=== PATIENT | male | born 1965 | race Caucasian/White ===

== ENCOUNTER 2016-05-09 12:01 | Inpatient (IN) | payer OTHER ==
[2016-05-09 12:16] VITALS: BMI 18.8
--- NOTE | 2016-05-09 16:18 | HP ---
Admission [facility] Chief Complaint: emil vásquez here for rehab from alcohol Allergies/Adverse Reactions: Allergies Allergy/AdvReac Type Severity Reaction Status Date / Time pollen extracts Allergy Intermediate Verified 05/09/16 16:05 avocado Allergy Verified 05/09/16 16:18 banana Allergy Verified 05/09/16 16:18 History of Present Illness: this 50 years old male with alcohol dependence for rehab,last detox weeks ago [facility] alcohol related hypertension hepatitis c depression mmtp 30 mgs/day,last medicated today Exam Limitations: No Limitations - Ebola screening Have you traveled outside of the country in the last 21 days: No Have you been sick,other than usual withdrawal symptoms: No - Review of Systems Constitutional: Malaise, Unintentional Wgt. Loss EENT: reports: No Symptoms Reported Respiratory: reports: No Symptoms reported Cardiac: reports: No Symptoms Reported GI: reports: No Symptoms Reported : reports: No Symptoms Reported Musculoskeletal: reports: No Symptoms Reported Integumentary: reports: No Symptoms Reported Neuro: reports: No Symptoms reported Endocrine: reports: No Symptoms Reported Hematology: reports: No Symptoms Reported Psychiatric: reports: Depressed Patient History - Patient Medical History Hx Anemia: No Hx Asthma: Yes (on albutrol inhaler) Hx Chronic Obstructive Pulmonary Disease (COPD): No Hx Cancer: No Hx Cardiac Disorders: No Hx Congestive Heart Failure: No Hx Hypertension: Yes (non complianace) Hx Hypercholesterolemia: No Hx Pacemaker: No HX Cerebrovascular Accident: No Hx Seizures: No Hx Dementia: No Hx Diabetes: No Hx Gastrointestinal Disorders: No Hx Liver Disease: No Hx Genitourinary Disorders: No Hx Sexually Transmitted Disorders: No Hx Renal Disease (ESRD): No Hx Thyroid Disease: No Hx Human Immunodeficiency Virus (HIV): No (last 03/19 negative) Hx Hepatitis C: Yes (no treatment) Hx Depression: No Hx Suicide Attempt: Yes (17 years old over dose pills) Hx Bipolar Disorder: Yes (on med) Hx Schizophrenia: No Other Medical History: no suicidal,no homicidal - Patient Surgical History Past Surgical History: Yes Hx Neurologic Surgery: No Hx Cataract Extraction: No Hx Cardiac Surgery: No Hx Lung Surgery: No Hx Breast Surgery: No Hx Breast Biopsy: No Hx Abdominal Surgery: Yes (1994) Hx Appendectomy: No Hx Cholecystectomy: No Hx Genitourinary Surgery: No Hx Orthopedic Surgery: No Anesthesia Reaction: No - PPD History Previous Implant?: Yes Date: 01/07/16 PPD to be Administered?: No - Smoking Cessation Smoking history: Current every day smoker Have you smoked in the past 12 months: Yes Aproximately how many cigarettes per day: 6 Cigars Per Day: 0 Hx Chewing Tobacco Use: No Initiated information on smoking cessation: Yes 'Breaking Loose' booklet given: 05/09/16 - Substance & Tx. History Hx Alcohol Use: Yes Hx Substance Use: No Substance Use Type: Alcohol Hx Substance Use Treatment: Yes ([facility] 04/19) - Substances Abused Alcohol Route: Oral Frequency: Daily Amount used: 12 can of 24 ozs of beer Age of first use: 10 Date of Last Use: 05/09/16 Family Disease History - Family Disease History Family Disease History: CA: Mother ( ), Other: Father () Admission Physical Exam [facility] - Vital Signs Vital Signs: Vital Signs - 24 hr 05/09/16 12:15 Temperature 98.1 F Pulse Rate 81 Respiratory 16 Rate Blood Pressure 122/96 - Physical General Appearance: Yes: Within Normal Limits HEENTM: Yes: Nasal Congestion Respiratory: Yes: Lungs Clear, Normal Breath Sounds, No Respiratory Distress Neck: Yes: Within Normal Limits Breast: Yes: Within Normal Limits Cardiology: Yes: Within Normal Limits, Regular Rhythm, Regular Rate, S1, S2 Abdominal: Yes: Within Normal Limits, Normal Bowel Sounds, Non Tender, Flat, Soft Genitourinary: Yes: Within Normal Limits Back: Yes: Within Normal Limits Musculoskeletal: Yes: Within Normal Limits Extremities: Yes: Within Normal Limits Neurological: Yes: drive thru order taker II-XII NML intact, Fully Oriented, Alert, Motor Strength 5/5 Integumentary: Yes: Within Normal Limits Lymphatic: Yes: Within Normal Limits - Diagnostic (1) Opioid dependence on agonist therapy Current Visit: No Status: Acute (2) Asthma Current Visit: No Status: Chronic Qualifiers: Asthma severity: moderate persistent Asthma complication type: with status asthmaticus Qualified Code(s): J45.42 - Moderate persistent asthma with status asthmaticus (3) Hepatitis C Current Visit: No Status: Chronic Qualifiers: Viral hepatitis chronicity: chronic Hepatic coma status: without hepatic coma Qualified Code(s): B18.2 - Chronic viral hepatitis C Comment: schedule with primary care provider for treatment post detox discharge (4) Hypertension Current Visit: No Status: Chronic Qualifiers: Hypertension type: essential hypertension Qualified Code(s): I10 - Essential (primary) hypertension Comment: clonidine (5) Nicotine dependence Current Visit: No Status: Chronic Qualifiers: Nicotine product type: cigarettes Substance use status: uncomplicated Qualified Code(s): F17.210 - Nicotine dependence, cigarettes, uncomplicated (6) Schizoaffective disorder Current Visit: No Status: Chronic Qualifiers: Schizoaffective disorder type: depressive Qualified Code(s): F25.1 - Schizoaffective disorder, depressive type Comment: Historical diagnosis. (7) Alcohol dependence Current Visit: Yes Status: Acute (8) Weight loss Current Visit: Yes Status: Acute Cleared for Admission [facility] - Detox or Rehab Claeared for Rehab Admission: Yes [facility] Breath Alcohol Content Breath Alcohol Content: 0.024 Urine Drug Screen - Results Drug Screen Negative: No Urine Drug Screen Results: BZO-Benzodiazepines, MTD-Methadone
[2016-05-09] MEDS ORDERED: diphenhydrAMINE HCL 50 MG CAPSULE PO PRN (16:34)
[2016-05-09] MEDS ORDERED: guaiFENesin/D-METHORPHAN HB 10 ML UNIT-DOSE CUPS PO PRN (16:34)
[2016-05-09] MEDS ORDERED: ACETAMINOPHEN 325 MG TABLET (FP) PO PRN (16:34)
[2016-05-09] MEDS ORDERED: IBUPROFEN 400 MG TABLET (FP) PO PRN (16:34)
[2016-05-09] MEDS ORDERED: MENTHOL/PHENOL 1 EACH UD MM PRN (16:34)
[2016-05-09] MEDS ORDERED: MAG HYDROX/AL HYDROX/SIMETH 30 ML UNIT-DOSE CUP PO PRN (16:34)
[2016-05-09] MEDS ORDERED: MAGNESIUM HYDROX 2400MG/30ML ORAL SUSPENSION 30 ML CUP PO PRN (16:34)
[2016-05-09] MEDS ORDERED: MAGNESIUM CITRATE 300 ML BOTTLE PO PRN (16:34)
[2016-05-09] MEDS ORDERED: P-EPHED 60MG/TRIPROLIDI 2.5MG TABLET PO PRN (16:34)
[2016-05-09] MEDS ORDERED: LOPERAMIDE HCL 2 MG CAPSULE PO PRN (16:34)
[2016-05-09] MEDS ORDERED: ALBUTEROL SO4 6.7 GM HFA INHALER IH PRN (16:38)
[2016-05-09] MEDS ORDERED: ALBUTEROL SO4 2.5/IPRATROPIUM 0.5 INH SOL 3 ML VIAL.NEB. NEB PRN (16:39)
[2016-05-09] MEDS: THIAMINE HCL 100 MG TABLET (FP) PO SCH (21:45)
[2016-05-09] MEDS: NICOTINE 21 MG/24 HOURS TOPICAL PATCH TD SCH (21:45)
--- NOTE | 2016-05-09 22:42 | PN ---
[facility] Progress Note Note: received nurse reports bp 141/105, no chest pain no headache, no shortness of breath no blurred vision begin metoprolol 25 mg po daily first dose now continue rehab
[2016-05-09] MEDS: ZIPRASIDONE 40 MG CAPSULE (FP) PO SCH (23:07)
[2016-05-09] MEDS: METOPROLOL TARTRATE 25 MG TABLET (FP) PO SCH (23:07)
[2016-05-10 03:58] LABS: URINE APPEARANCE CLEAR; URINE BILIRUBIN NEGATIVE (NEGATIVE); URINE BLOOD NEGATIVE (NEGATIVE); URINE COLOR YELLOW; URINE GLUCOSE (UA) NEGATIVE (NEGATIVE); URINE KETONE NEGATIVE (NEGATIVE); URINE LEUK ESTERASE NEGATIVE (NEGATIVE); URINE NITRITE NEGATIVE (NEGATIVE); URINE PROTEIN NEGATIVE (NEGATIVE); URINE UROBILINOGEN NEGATIVE E.U./dl (0.2-1.0)
[2016-05-10] MEDS: PRENATAL VITAMINS W/ FOLIC ACID TABLET (FP) PO SCH (09:55)
[2016-05-10] MEDS: METOPROLOL TARTRATE 25 MG TABLET (FP) PO SCH (09:56)
[2016-05-10] MEDS: NICOTINE 21 MG/24 HOURS TOPICAL PATCH TD SCH (09:58)
[2016-05-10] MEDS ORDERED: ZIPRASIDONE 40 MG CAPSULE (FP) PO SCH (10:00)
[2016-05-10 10:04] LABS: MCH 34.8 pg (25.7-33.7); MCHC 33.4 g/dl (32.0-35.9); MEAN CELL VOLUME 104.4 fl (80-96); MEAN PLT VOLUME 9.1 fl (7.5-11.1); PLATELET COUNT 320 K/MM3 (134-434); RDW 11.9 % (11.9-15.9); WHITE BLOOD COUNT 6.7 K/mm3 (4.0-10.0)
[2016-05-10 10:22] LABS: ALBUMIN 3.4 g/dl (3.4-5.0); ANION GAP 10 (8-16); CO2 27 mmol/L (21-32); GLUCOSE,RANDOM 97 mg/dL (74-106)
[2016-05-10 10:26] LABS: ALK PHOS 102 U/L (45-117); BILIRUBIN,TOTAL 0.6 mg/dL (0.2-1.0); CREATININE 0.5 mg/dL (0.7-1.3); SGOT/AST 96 U/L (15-37); SGPT/ALT 110 U/L (12-78); TOT PROT 8.3 g/dl (6.4-8.2)
[2016-05-10] MEDS ORDERED: METHADONE HCL 10 MG TABLET PO ONE (10:41)
--- NOTE | 2016-05-10 11:17 | HP ---
Psychiatrist Admission - Data Date of interview: 05/10/16 Admission source: [facility] Identifying data: This is the first 5N inpatient rehabilitation admission for this 50 year old single,a father of one, domiciled residing with his sister and brother in [place],unemployed and supported on SSI benefits. Medical History: Significant for hepatitis C, hypertension and bronchial asthma. Smokes cigarettes 5 a day, in MMTP 30 mg/daily. Psychiatric History: Patient reports carries a diagnosis of Bipolar and MDD, states has been in treatment about 0 years, he reports no history of psychiatric hospitalizations..He sees a psychiatrist at [facility] clinic for medication management and currently on geodon 40 mg nightly. He reports history of overdose with heroin in the past. Patient is poor historian. Physical/Sexual Abuse/Trauma History: Denies history of sexual, physical and verbal abuse. Vital Signs: Vital Signs - 24 hr 05/09/16 05/09/16 05/10/16 12:15 22:00 00:30 Temperature 98.1 F Pulse Rate 81 82 Respiratory 16 18 Rate Blood Pressure 122/96 129/82 05/10/16 05/10/16 03:30 06:42 Temperature 97.6 F Pulse Rate 73 Respiratory 18 20 Rate Blood Pressure 132/83 Allergies/Adverse Reactions: Allergies Allergy/AdvReac Type Severity Reaction Status Date / Time pollen extracts Allergy Intermediate Verified 05/09/16 16:05 avocado Allergy Verified 05/09/16 16:18 banana Allergy Verified 05/09/16 16:18 No Known Drug Allergies Allergy Verified 05/09/16 17:06 Date of last physical exam: 05/09/16 Concur with the findings of this exam: Yes - Substance Abuse/Tx History Hx Alcohol Use: Yes Hx Substance Use: No Substance Use Type: Alcohol (24 oz beer6 a day) Hx Substance Use Treatment: Yes ([place] inpatient program) - Admission Criteria Previous failed treatment: Yes Poor recovery environment: Yes Comorbidities: Yes Lacks judgement: Yes Mental Status Exam - Mental Status Exam Alert and Oriented to: Time, Place Cognitive Function: Grossly Intact Patient Appearance: Well Groomed Mood: Hopeful Affect: Appropriate, Mood Congruent Patient Behavior: Appropriate, Cooperative Speech Pattern: Clear, Appropriate Voice Loudness: Normal Thought Process: Intact, Goal Oriented Thought Disorder: Not Present Hallucinations: None, Denies Suicidal Ideation: None, Denies Homicidal Ideation: None, Denies Insight/Judgement: Fair Sleep: Fair Appetite: Good Muscle strength/Tone: Normal Gait/Station: Normal Psychiatric Findings - Problem List ([place] 1, 2,3) (1) Alcohol dependence Current Visit: Yes Status: Acute (2) Opioid dependence on agonist therapy Current Visit: No Status: Acute (3) Asthma Current Visit: No Status: Chronic Qualifiers: Asthma severity: moderate persistent Asthma complication type: with status asthmaticus Qualified Code(s): J45.42 - Moderate persistent asthma with status asthmaticus (4) Hepatitis C Current Visit: No Status: Chronic Qualifiers: Viral hepatitis chronicity: chronic Hepatic coma status: without hepatic coma Qualified Code(s): B18.2 - Chronic viral hepatitis C Comment: schedule with primary care provider for treatment post detox discharge (5) Hypertension Current Visit: No Status: Chronic Qualifiers: Hypertension type: essential hypertension Qualified Code(s): I10 - Essential (primary) hypertension Comment: clonidine (6) Bipolar II disorder Current Visit: Yes Status: Acute - Initial Treatment Plan Initial Treatment Plan: to continue Geodon 40 mg po hs, monitor progress as needed.
[2016-05-10] MEDS ORDERED: INFLUENZA VACCINE 45 MCG/0.5 ML (MDV 16-17) IM ONE (12:00)
[2016-05-10] MEDS ORDERED: PNEUMOC 13-VAL CONJ-DIP CRM/PF 0.5 ML DISP.SYRIN IM ONE (12:00)
[2016-05-10] MEDS ORDERED: PNEUMOCOCCAL 23 VACCINE 0.5 ML VIAL IM ONE (12:00)
--- NOTE | 2016-05-10 13:03 | EKG ---
Test Reason : Blood Pressure : / mmHG Vent. Rate : 077 BPM Atrial Rate : 077 BPM P-R Int : 178 ms QRS Dur : 094 ms QT Int : 404 ms P-R-T Axes : 079 030 045 degrees QTc Int : 457 ms NORMAL SINUS RHYTHM VOLTAGE CRITERIA FOR LEFT VENTRICULAR HYPERTROPHY CANNOT RULE OUT SEPTAL INFARCT , AGE UNDETERMINED NONSPECIFIC ST ABNORMALITY ABNORMAL ECG NO PREVIOUS ECGS AVAILABLE Confirmed by BART FAGAN MD ([id number]) on 05/10/2016 1:03:13 PM Referred By: Elsie Francis Confirmed By:BART FAGAN MD
[2016-05-10] MEDS: THIAMINE HCL 100 MG TABLET (FP) PO SCH (21:20)
[2016-05-10] MEDS: ZIPRASIDONE 40 MG CAPSULE (FP) PO SCH (21:20)
[2016-05-10] MEDS ORDERED: LURASIDONE HCL 40 MG TABLET PO SCH (22:00)
[2016-05-11] MEDS: METHADONE HCL 10 MG TABLET PO SCH (06:13)
[2016-05-11] MEDS: NICOTINE 21 MG/24 HOURS TOPICAL PATCH TD SCH (09:41)
[2016-05-11] MEDS: PRENATAL VITAMINS W/ FOLIC ACID TABLET (FP) PO SCH (09:41)
[2016-05-11] MEDS: METOPROLOL TARTRATE 25 MG TABLET (FP) PO SCH (09:41)
[2016-05-11] MEDS: hydrOXYzine PAMOATE 50 MG CAPSULE (FP) PO PRN (09:42)
[2016-05-11] MEDS: ZIPRASIDONE 40 MG CAPSULE (FP) PO SCH (21:18)
[2016-05-11] MEDS: THIAMINE HCL 100 MG TABLET (FP) PO SCH (21:18)
[2016-05-12] MEDS: METHADONE HCL 10 MG TABLET PO SCH (06:24)
[2016-05-12] MEDS: PRENATAL VITAMINS W/ FOLIC ACID TABLET (FP) PO SCH (09:50)
[2016-05-12] MEDS: NICOTINE 21 MG/24 HOURS TOPICAL PATCH TD SCH (09:51)
[2016-05-12] MEDS: METOPROLOL TARTRATE 25 MG TABLET (FP) PO SCH (09:51)
[2016-05-12] MEDS: THIAMINE HCL 100 MG TABLET (FP) PO SCH (21:32)
[2016-05-12] MEDS: ZIPRASIDONE 40 MG CAPSULE (FP) PO SCH (21:32)
[2016-05-13] MEDS: METHADONE HCL 10 MG TABLET PO SCH (06:21)
[2016-05-13] MEDS: METOPROLOL TARTRATE 25 MG TABLET (FP) PO SCH (09:33)
[2016-05-13] MEDS: NICOTINE 21 MG/24 HOURS TOPICAL PATCH TD SCH (09:33)
[2016-05-13] MEDS: PRENATAL VITAMINS W/ FOLIC ACID TABLET (FP) PO SCH (09:33)
[2016-05-13] MEDS: ZIPRASIDONE 40 MG CAPSULE (FP) PO SCH (21:52)
[2016-05-13] MEDS: THIAMINE HCL 100 MG TABLET (FP) PO SCH (21:52)
[2016-05-14] MEDS: METHADONE HCL 10 MG TABLET PO SCH (06:11)
[2016-05-14] MEDS: NICOTINE 21 MG/24 HOURS TOPICAL PATCH TD SCH (09:26)
[2016-05-14] MEDS: METOPROLOL TARTRATE 25 MG TABLET (FP) PO SCH (09:26)
[2016-05-14] MEDS: PRENATAL VITAMINS W/ FOLIC ACID TABLET (FP) PO SCH (09:26)
[2016-05-14] MEDS: THIAMINE HCL 100 MG TABLET (FP) PO SCH (21:15)
[2016-05-14] MEDS: ZIPRASIDONE 40 MG CAPSULE (FP) PO SCH (21:15)
[2016-05-15] MEDS: METHADONE HCL 10 MG TABLET PO SCH (06:07)
[2016-05-15] MEDS: METOPROLOL TARTRATE 25 MG TABLET (FP) PO SCH (09:21)
[2016-05-15] MEDS: NICOTINE 21 MG/24 HOURS TOPICAL PATCH TD SCH (09:21)
[2016-05-15] MEDS: PRENATAL VITAMINS W/ FOLIC ACID TABLET (FP) PO SCH (09:21)
[2016-05-15] MEDS: ZIPRASIDONE 40 MG CAPSULE (FP) PO SCH (21:25)
[2016-05-15] MEDS: THIAMINE HCL 100 MG TABLET (FP) PO SCH (21:25)
[2016-05-16] MEDS: METHADONE HCL 10 MG TABLET PO SCH (06:33)
[2016-05-16] MEDS: METOPROLOL TARTRATE 25 MG TABLET (FP) PO SCH ×2 (07:39→09:50)
[2016-05-16] MEDS: hydrOXYzine PAMOATE 50 MG CAPSULE (FP) PO PRN (07:40)
[2016-05-16] MEDS: NICOTINE 21 MG/24 HOURS TOPICAL PATCH TD SCH (09:54)
[2016-05-16] MEDS: PRENATAL VITAMINS W/ FOLIC ACID TABLET (FP) PO SCH (09:54)
[2016-05-16] MEDS: THIAMINE HCL 100 MG TABLET (FP) PO SCH (21:37)
[2016-05-16] MEDS: ZIPRASIDONE 40 MG CAPSULE (FP) PO SCH (21:37)
[2016-05-17] MEDS: METHADONE HCL 10 MG TABLET PO SCH (06:30)
[2016-05-17] MEDS: PRENATAL VITAMINS W/ FOLIC ACID TABLET (FP) PO SCH (09:22)
[2016-05-17] MEDS: METOPROLOL TARTRATE 25 MG TABLET (FP) PO SCH (09:22)
[2016-05-17] MEDS: NICOTINE 21 MG/24 HOURS TOPICAL PATCH TD SCH (09:23)
[2016-05-17] MEDS: ZIPRASIDONE 40 MG CAPSULE (FP) PO SCH (21:30)
[2016-05-17] MEDS: THIAMINE HCL 100 MG TABLET (FP) PO SCH (21:30)
[2016-05-18] MEDS: METHADONE HCL 10 MG TABLET PO SCH (06:47)
[2016-05-18] MEDS: NICOTINE 21 MG/24 HOURS TOPICAL PATCH TD SCH (09:38)
[2016-05-18] MEDS: PRENATAL VITAMINS W/ FOLIC ACID TABLET (FP) PO SCH (09:38)
[2016-05-18] MEDS: METOPROLOL TARTRATE 25 MG TABLET (FP) PO SCH (09:38)
[2016-05-18] MEDS: ZIPRASIDONE 40 MG CAPSULE (FP) PO SCH (21:09)
[2016-05-18] MEDS: THIAMINE HCL 100 MG TABLET (FP) PO SCH (21:09)
[2016-05-19] MEDS: METHADONE HCL 10 MG TABLET PO SCH (06:40)
[2016-05-19] MEDS: METOPROLOL TARTRATE 25 MG TABLET (FP) PO SCH (09:37)
[2016-05-19] MEDS: NICOTINE 21 MG/24 HOURS TOPICAL PATCH TD SCH (09:37)
[2016-05-19] MEDS: PRENATAL VITAMINS W/ FOLIC ACID TABLET (FP) PO SCH (09:37)
[2016-05-19] MEDS: THIAMINE HCL 100 MG TABLET (FP) PO SCH (21:44)
[2016-05-19] MEDS: ZIPRASIDONE 40 MG CAPSULE (FP) PO SCH (21:45)
[2016-05-20] MEDS: METHADONE HCL 10 MG TABLET PO SCH (06:04)
[2016-05-20] MEDS: hydrOXYzine PAMOATE 50 MG CAPSULE (FP) PO PRN (09:39)
[2016-05-20] MEDS: PRENATAL VITAMINS W/ FOLIC ACID TABLET (FP) PO SCH (09:39)
[2016-05-20] MEDS: METOPROLOL TARTRATE 25 MG TABLET (FP) PO SCH (09:40)
[2016-05-20] MEDS: NICOTINE 21 MG/24 HOURS TOPICAL PATCH TD SCH (09:41)
[2016-05-20] MEDS ORDERED: ALBUTEROL SO4 2.5/IPRATROPIUM 0.5 INH SOL 3 ML VIAL.NEB. NEB PRN (13:41)
[2016-05-20] MEDS ORDERED: CYCLOBENZAPRINE HCL 10 MG TABLET (FP) PO PRN (13:41)
--- NOTE | 2016-05-20 14:40 | PN ---
Psychiatric Progress Note Vital Signs: Vital Signs Period Temp Pulse Resp BP Sys/Blackwell Pulse Ox Last 24 Hr 97.9 F 75-84 16-18 108-127/77-81 Date of Session: 05/20/16 Chief Complaint:: "anxiety" HPI: Patient is addressing alcohol dependence , opioid dependence on agonist therapy, comorbid Bipolar II disorder. ROS: hepatitis C,hypertension and bronchial asthma. Current Medications: Active Medications Generic Name Dose Route Start Last Admin Trade Name Freq PRN Reason Stop Dose Admin Acetaminophen 650 mg 05/09/16 16:34 Tylenol - PO Q4H PRN PAIN Al Hydroxide/Mg Hydroxide 30 ml 05/09/16 16:34 Mylanta Oral Suspension - PO Q6H PRN DYSPEPSIA Albuterol Sulfate 2 puff 05/09/16 16:38 Ventolin Hfa Inhaler - IH Q4H PRN ASTHMA Albuterol/Ipratropium 1 amp 05/20/16 13:41 Duoneb - NEB Q4H PRN SHORTNESS OF BREATH Cyclobenzaprine HCl 10 mg 05/20/16 13:41 Flexeril - PO TID PRN MUSCLE SPASMS Diphenhydramine HCl 50 mg 05/09/16 16:34 05/19/16 21:45 Benadryl - PO 50 mg HSMR1 PRN Administration INSOMNIA Eucalyptus/Menthol/Phenol/Sorbitol 1 each 05/09/16 16:34 Cepastat Lozenge - MM Q4H PRN SORE THROAT Guaifenesin 10 ml 05/09/16 16:34 Robitussin Dm - PO Q6H PRN COUGH Hydroxyzine Pamoate 50 mg 05/09/16 16:34 05/20/16 09:39 Vistaril - PO 50 mg Q4H PRN Administration AGITATION Ibuprofen 400 mg 05/09/16 16:34 05/20/16 14:08 Motrin - PO 400 mg Q6H PRN Administration SEVERE PAIN Loperamide HCl 4 mg 05/09/16 16:34 Imodium - PO Q6H PRN DIARRHEA Magnesium Citrate 300 ml 05/09/16 16:34 Citroma - PO Q48H PRN CONSTIPATION Magnesium Hydroxide 30 ml 05/09/16 16:34 Milk Of Magnesia - PO DAILY PRN CONSTIPATION Methadone HCl 30 mg 05/17/16 06:00 05/20/16 06:04 Dolophine - PO 05/23/16 05:59 30 mg DAILY@0600 MARLEN Administration Metoprolol Tartrate 25 mg 05/09/16 22:45 05/20/16 09:40 Lopressor - PO 25 mg DAILY MARLEN Administration Nicotine 21 mg 05/09/16 17:15 05/20/16 09:41 Nicoderm Patch - TD 21 mg DAILY MARLEN Administration Multivit/Folic Acid/Iron 1 tab 05/10/16 10:00 05/20/16 09:39 Vitamins (Sjr) - PO 1 tab DAILY MARLEN Administration Pseudoephedrine/Triprolidine 1 combo 05/09/16 16:34 Actifed - PO TID PRN NASAL CONGESTION Thiamine HCl 100 mg 05/09/16 22:00 05/19/16 21:44 Vitamin B1 - PO 100 mg HS MARLEN Administration Ziprasidone 40 mg 05/09/16 23:15 05/19/16 21:45 Geodon - PO 40 mg HS MARLEN Administration Medication(s) Change(s): add Lexapro 10 mg po am, increase Geodon 40 mg po bid, Sinequan 10 mg po hs.. Current Side Effect: No Lab tests ordered: No Lab tests reviewed: Yes Provider note:: Patient reports he feels very anxious, isolative and having insomnia, was asked about auditory hallucinations he reports that he heard voices whispering "a lot" states "less now but still". Reports he feels depressed and tends to isolate himself, even when in groups he does not want to talk. Reviewed medications with the patient discusssed indications and properties of Lexapro, Sineqan and Geodon, treatment plan discussed with the patient, he agreed. Psychoeducation and emotional supports provided, will contin ue to monitor proges. Patient made aware of Vistaril PRN for anxiety. Total face to face time:: 35 Mental Status Exam - Mental Status Exam Alert and Oriented to: Time, Place, Person Cognitive Function: Grossly Intact Patient Appearance: Well Groomed Mood: Depressed, Sad, Anxious Affect: Appropriate, Mood Congruent Patient Behavior: Appropriate, Cooperative Speech Pattern: Clear, Appropriate Voice Loudness: Normal Thought Process: Goal Oriented Thought Disorder: Not Present Hallucinations: Auditory (o ad off voices whispering) Suicidal Ideation: Denies Homicidal Ideation: Denies Insight/Judgement: Fair Sleep: Poorly, Difficulty falling asleep Appetite: Fair Muscle strength/Tone: Normal Gait/Station: Normal Psychiatric Treatment Plan - Problem List (1) Alcohol dependence Current Visit: Yes (2) Opioid dependence on agonist therapy Current Visit: No (3) Asthma Current Visit: No Qualifiers: Asthma severity: moderate persistent Asthma complication type: with status asthmaticus Qualified Code(s): J45.42 - Moderate persistent asthma with status asthmaticus (4) Hepatitis C Current Visit: No Qualifiers: Viral hepatitis chronicity: chronic Hepatic coma status: without hepatic coma Qualified Code(s): B18.2 - Chronic viral hepatitis C Comment: schedule with primary care provider for treatment post detox discharge (5) Hypertension Current Visit: No Qualifiers: Hypertension type: essential hypertension Qualified Code(s): I10 - Essential (primary) hypertension Comment: clonidine (6) Bipolar II disorder Current Visit: Yes
[2016-05-20] MEDS: THIAMINE HCL 100 MG TABLET (FP) PO SCH (21:19)
[2016-05-20] MEDS: ZIPRASIDONE 40 MG CAPSULE (FP) PO SCH (21:19)
[2016-05-20] MEDS: DOXEPIN HCL 10 MG CAPSULE PO SCH (21:19)
[2016-05-21] MEDS: METHADONE HCL 10 MG TABLET PO SCH (06:06)
[2016-05-21] MEDS: PRENATAL VITAMINS W/ FOLIC ACID TABLET (FP) PO SCH (09:52)
[2016-05-21] MEDS: ZIPRASIDONE 40 MG CAPSULE (FP) PO SCH ×2 (09:53→21:12)
[2016-05-21] MEDS: ESCITALOPRAM OXALATE 10 MG TABLET (FP) PO SCH (09:53)
[2016-05-21] MEDS: METOPROLOL TARTRATE 25 MG TABLET (FP) PO SCH (09:53)
[2016-05-21] MEDS: NICOTINE 21 MG/24 HOURS TOPICAL PATCH TD SCH (09:54)
[2016-05-21] MEDS: THIAMINE HCL 100 MG TABLET (FP) PO SCH (21:12)
[2016-05-21] MEDS: DOXEPIN HCL 10 MG CAPSULE PO SCH (21:12)
[2016-05-22] MEDS: METHADONE HCL 10 MG TABLET PO SCH (06:16)
[2016-05-22] MEDS: ESCITALOPRAM OXALATE 10 MG TABLET (FP) PO SCH (09:38)
[2016-05-22] MEDS: METOPROLOL TARTRATE 25 MG TABLET (FP) PO SCH (09:39)
[2016-05-22] MEDS: ZIPRASIDONE 40 MG CAPSULE (FP) PO SCH ×2 (09:39→21:25)
[2016-05-22] MEDS: PRENATAL VITAMINS W/ FOLIC ACID TABLET (FP) PO SCH (09:39)
[2016-05-22] MEDS: NICOTINE 21 MG/24 HOURS TOPICAL PATCH TD SCH (09:40)
[2016-05-22] MEDS: THIAMINE HCL 100 MG TABLET (FP) PO SCH (21:25)
[2016-05-22] MEDS: DOXEPIN HCL 10 MG CAPSULE PO SCH (21:25)
[2016-05-23] MEDS: METHADONE HCL 10 MG TABLET PO SCH (06:20)
[2016-05-23] MEDS: ESCITALOPRAM OXALATE 10 MG TABLET (FP) PO SCH (09:51)
[2016-05-23] MEDS: METOPROLOL TARTRATE 25 MG TABLET (FP) PO SCH (09:52)
[2016-05-23] MEDS: NICOTINE 21 MG/24 HOURS TOPICAL PATCH TD SCH (09:52)
[2016-05-23] MEDS: ZIPRASIDONE 40 MG CAPSULE (FP) PO SCH ×2 (09:52→21:03)
[2016-05-23] MEDS: PRENATAL VITAMINS W/ FOLIC ACID TABLET (FP) PO SCH (09:55)
[2016-05-23] MEDS: THIAMINE HCL 100 MG TABLET (FP) PO SCH (21:03)
[2016-05-23] MEDS: DOXEPIN HCL 10 MG CAPSULE PO SCH (21:03)
[2016-05-24] MEDS: METHADONE HCL 10 MG TABLET PO SCH (06:09)
[2016-05-24] MEDS: ESCITALOPRAM OXALATE 10 MG TABLET (FP) PO SCH (09:33)
[2016-05-24] MEDS: METOPROLOL TARTRATE 25 MG TABLET (FP) PO SCH (09:33)
[2016-05-24] MEDS: NICOTINE 21 MG/24 HOURS TOPICAL PATCH TD SCH (09:34)
[2016-05-24] MEDS: ZIPRASIDONE 40 MG CAPSULE (FP) PO SCH ×2 (09:34→21:11)
[2016-05-24] MEDS: PRENATAL VITAMINS W/ FOLIC ACID TABLET (FP) PO SCH (09:35)
[2016-05-24] MEDS: THIAMINE HCL 100 MG TABLET (FP) PO SCH (21:11)
[2016-05-24] MEDS: DOXEPIN HCL 10 MG CAPSULE PO SCH (21:11)
[2016-05-25] MEDS: METHADONE HCL 10 MG TABLET PO SCH (06:10)
[2016-05-25] MEDS: ESCITALOPRAM OXALATE 10 MG TABLET (FP) PO SCH (09:42)
[2016-05-25] MEDS: ZIPRASIDONE 40 MG CAPSULE (FP) PO SCH ×2 (09:42→21:33)
[2016-05-25] MEDS: PRENATAL VITAMINS W/ FOLIC ACID TABLET (FP) PO SCH (09:42)
[2016-05-25] MEDS: METOPROLOL TARTRATE 25 MG TABLET (FP) PO SCH (09:43)
[2016-05-25] MEDS: NICOTINE 21 MG/24 HOURS TOPICAL PATCH TD SCH (09:43)
[2016-05-25] MEDS: DOXEPIN HCL 10 MG CAPSULE PO SCH (21:33)
[2016-05-25] MEDS: THIAMINE HCL 100 MG TABLET (FP) PO SCH (21:33)
[2016-05-26] MEDS: METHADONE HCL 10 MG TABLET PO SCH (06:08)
[2016-05-26] MEDS: PRENATAL VITAMINS W/ FOLIC ACID TABLET (FP) PO SCH (09:39)
[2016-05-26] MEDS: ESCITALOPRAM OXALATE 10 MG TABLET (FP) PO SCH (09:39)
[2016-05-26] MEDS: METOPROLOL TARTRATE 25 MG TABLET (FP) PO SCH (09:39)
[2016-05-26] MEDS: ZIPRASIDONE 40 MG CAPSULE (FP) PO SCH ×2 (09:39→21:22)
[2016-05-26] MEDS: NICOTINE 21 MG/24 HOURS TOPICAL PATCH TD SCH (09:40)
[2016-05-26] MEDS: THIAMINE HCL 100 MG TABLET (FP) PO SCH (21:22)
[2016-05-26] MEDS: DOXEPIN HCL 10 MG CAPSULE PO SCH (21:22)
[2016-05-27] MEDS: METHADONE HCL 10 MG TABLET PO SCH (06:09)
[2016-05-27] MEDS: METOPROLOL TARTRATE 25 MG TABLET (FP) PO SCH (09:53)
[2016-05-27] MEDS: ESCITALOPRAM OXALATE 10 MG TABLET (FP) PO SCH (09:54)
[2016-05-27] MEDS: NICOTINE 21 MG/24 HOURS TOPICAL PATCH TD SCH (09:54)
[2016-05-27] MEDS: PRENATAL VITAMINS W/ FOLIC ACID TABLET (FP) PO SCH (09:54)
[2016-05-27] MEDS: ZIPRASIDONE 40 MG CAPSULE (FP) PO SCH ×2 (09:54→21:32)
[2016-05-27] MEDS: THIAMINE HCL 100 MG TABLET (FP) PO SCH (21:32)
[2016-05-27] MEDS: DOXEPIN HCL 10 MG CAPSULE PO SCH (21:32)
[2016-05-28] MEDS: METHADONE HCL 10 MG TABLET PO SCH (06:29)
[2016-05-28] MEDS: ZIPRASIDONE 40 MG CAPSULE (FP) PO SCH ×2 (09:31→21:10)
[2016-05-28] MEDS: PRENATAL VITAMINS W/ FOLIC ACID TABLET (FP) PO SCH (09:31)
[2016-05-28] MEDS: METOPROLOL TARTRATE 25 MG TABLET (FP) PO SCH (09:32)
[2016-05-28] MEDS: ESCITALOPRAM OXALATE 10 MG TABLET (FP) PO SCH (09:32)
[2016-05-28] MEDS: NICOTINE 21 MG/24 HOURS TOPICAL PATCH TD SCH (09:33)
[2016-05-28] MEDS: THIAMINE HCL 100 MG TABLET (FP) PO SCH (21:10)
[2016-05-28] MEDS: DOXEPIN HCL 10 MG CAPSULE PO SCH (21:11)
[2016-05-29] MEDS: METHADONE HCL 10 MG TABLET PO SCH (06:25)
[2016-05-29] MEDS: METOPROLOL TARTRATE 25 MG TABLET (FP) PO SCH (09:48)
[2016-05-29] MEDS: PRENATAL VITAMINS W/ FOLIC ACID TABLET (FP) PO SCH (09:49)
[2016-05-29] MEDS: ZIPRASIDONE 40 MG CAPSULE (FP) PO SCH ×2 (09:49→21:13)
[2016-05-29] MEDS: NICOTINE 21 MG/24 HOURS TOPICAL PATCH TD SCH (09:49)
[2016-05-29] MEDS: ESCITALOPRAM OXALATE 10 MG TABLET (FP) PO SCH (09:49)
[2016-05-29] MEDS: DOXEPIN HCL 10 MG CAPSULE PO SCH (21:13)
[2016-05-29] MEDS: THIAMINE HCL 100 MG TABLET (FP) PO SCH (21:13)
[2016-05-30] MEDS: METHADONE HCL 10 MG TABLET PO SCH (06:25)
[2016-05-30] MEDS: ZIPRASIDONE 40 MG CAPSULE (FP) PO SCH ×2 (09:45→21:28)
[2016-05-30] MEDS: NICOTINE 21 MG/24 HOURS TOPICAL PATCH TD SCH (09:45)
[2016-05-30] MEDS: ESCITALOPRAM OXALATE 10 MG TABLET (FP) PO SCH (09:45)
[2016-05-30] MEDS: METOPROLOL TARTRATE 25 MG TABLET (FP) PO SCH (09:45)
[2016-05-30] MEDS: PRENATAL VITAMINS W/ FOLIC ACID TABLET (FP) PO SCH (09:45)
[2016-05-30] MEDS: THIAMINE HCL 100 MG TABLET (FP) PO SCH (21:28)
[2016-05-30] MEDS: DOXEPIN HCL 10 MG CAPSULE PO SCH (21:28)
[2016-05-31] MEDS: METHADONE HCL 10 MG TABLET PO SCH (06:16)
[2016-05-31] MEDS: ESCITALOPRAM OXALATE 10 MG TABLET (FP) PO SCH (09:52)
[2016-05-31] MEDS: METOPROLOL TARTRATE 25 MG TABLET (FP) PO SCH (09:52)
[2016-05-31] MEDS: ZIPRASIDONE 40 MG CAPSULE (FP) PO SCH ×2 (09:52→21:33)
[2016-05-31] MEDS: PRENATAL VITAMINS W/ FOLIC ACID TABLET (FP) PO SCH (09:52)
[2016-05-31] MEDS: NICOTINE 21 MG/24 HOURS TOPICAL PATCH TD SCH (09:53)
[2016-05-31] MEDS: DOXEPIN HCL 10 MG CAPSULE PO SCH (21:33)
[2016-05-31] MEDS: THIAMINE HCL 100 MG TABLET (FP) PO SCH (21:33)
[2016-06-01] MEDS: METHADONE HCL 10 MG TABLET PO SCH (06:31)
[2016-06-01] MEDS: ESCITALOPRAM OXALATE 10 MG TABLET (FP) PO SCH (09:40)
[2016-06-01] MEDS: METOPROLOL TARTRATE 25 MG TABLET (FP) PO SCH (09:40)
[2016-06-01] MEDS: ZIPRASIDONE 40 MG CAPSULE (FP) PO SCH ×2 (09:40→21:11)
[2016-06-01] MEDS: PRENATAL VITAMINS W/ FOLIC ACID TABLET (FP) PO SCH (09:40)
[2016-06-01] MEDS: NICOTINE 21 MG/24 HOURS TOPICAL PATCH TD SCH (09:41)
[2016-06-01] MEDS: THIAMINE HCL 100 MG TABLET (FP) PO SCH (21:11)
[2016-06-01] MEDS: DOXEPIN HCL 10 MG CAPSULE PO SCH (21:11)
[2016-06-02] MEDS: METHADONE HCL 10 MG TABLET PO SCH (06:30)
[2016-06-02] MEDS: METOPROLOL TARTRATE 25 MG TABLET (FP) PO SCH (09:50)
[2016-06-02] MEDS: ZIPRASIDONE 40 MG CAPSULE (FP) PO SCH ×2 (09:50→21:15)
[2016-06-02] MEDS: ESCITALOPRAM OXALATE 10 MG TABLET (FP) PO SCH (09:51)
[2016-06-02] MEDS: NICOTINE 21 MG/24 HOURS TOPICAL PATCH TD SCH (09:51)
[2016-06-02] MEDS: PRENATAL VITAMINS W/ FOLIC ACID TABLET (FP) PO SCH (09:51)
[2016-06-02] MEDS: THIAMINE HCL 100 MG TABLET (FP) PO SCH (21:15)
[2016-06-02] MEDS: DOXEPIN HCL 10 MG CAPSULE PO SCH (21:15)
[2016-06-03] MEDS: METHADONE HCL 10 MG TABLET PO SCH (06:25)
[2016-06-03] MEDS: ESCITALOPRAM OXALATE 10 MG TABLET (FP) PO SCH (09:44)
[2016-06-03] MEDS: ZIPRASIDONE 40 MG CAPSULE (FP) PO SCH ×2 (09:44→21:35)
[2016-06-03] MEDS: PRENATAL VITAMINS W/ FOLIC ACID TABLET (FP) PO SCH (09:44)
[2016-06-03] MEDS: METOPROLOL TARTRATE 25 MG TABLET (FP) PO SCH (09:44)
[2016-06-03] MEDS: NICOTINE 21 MG/24 HOURS TOPICAL PATCH TD SCH (09:45)
[2016-06-03] MEDS: DOXEPIN HCL 10 MG CAPSULE PO SCH (21:35)
[2016-06-03] MEDS: THIAMINE HCL 100 MG TABLET (FP) PO SCH (21:35)
[2016-06-04] MEDS: METHADONE HCL 10 MG TABLET PO SCH (06:04)
[2016-06-04] MEDS: PRENATAL VITAMINS W/ FOLIC ACID TABLET (FP) PO SCH (09:38)
[2016-06-04] MEDS: ZIPRASIDONE 40 MG CAPSULE (FP) PO SCH ×2 (09:38→21:08)
[2016-06-04] MEDS: METOPROLOL TARTRATE 25 MG TABLET (FP) PO SCH (09:38)
[2016-06-04] MEDS: ESCITALOPRAM OXALATE 10 MG TABLET (FP) PO SCH (09:39)
[2016-06-04] MEDS: NICOTINE 21 MG/24 HOURS TOPICAL PATCH TD SCH (09:39)
[2016-06-04] MEDS: DOXEPIN HCL 10 MG CAPSULE PO SCH (21:08)
[2016-06-04] MEDS: THIAMINE HCL 100 MG TABLET (FP) PO SCH (21:08)
[2016-06-05] MEDS: METHADONE HCL 10 MG TABLET PO SCH (06:32)
[2016-06-05] MEDS: METOPROLOL TARTRATE 25 MG TABLET (FP) PO SCH (09:47)
[2016-06-05] MEDS: ZIPRASIDONE 40 MG CAPSULE (FP) PO SCH ×2 (09:48→21:45)
[2016-06-05] MEDS: PRENATAL VITAMINS W/ FOLIC ACID TABLET (FP) PO SCH (09:48)
[2016-06-05] MEDS: ESCITALOPRAM OXALATE 10 MG TABLET (FP) PO SCH (09:48)
[2016-06-05] MEDS: NICOTINE 21 MG/24 HOURS TOPICAL PATCH TD SCH (09:49)
[2016-06-05] MEDS: THIAMINE HCL 100 MG TABLET (FP) PO SCH (21:45)
[2016-06-05] MEDS: DOXEPIN HCL 10 MG CAPSULE PO SCH (21:45)
[2016-06-06] MEDS: METHADONE HCL 10 MG TABLET PO SCH (06:08)
[2016-06-06 06:33] VITALS: BP 134/92; PULSE 69; TEMP 97.9
[2016-06-06] MEDS: ZIPRASIDONE 40 MG CAPSULE (FP) PO SCH (09:53)
[2016-06-06] MEDS: ESCITALOPRAM OXALATE 10 MG TABLET (FP) PO SCH (09:54)
[2016-06-06] MEDS: NICOTINE 21 MG/24 HOURS TOPICAL PATCH TD SCH (09:55)
[2016-06-06] MEDS: PRENATAL VITAMINS W/ FOLIC ACID TABLET (FP) PO SCH (09:55)
[2016-06-06] MEDS: METOPROLOL TARTRATE 25 MG TABLET (FP) PO SCH (09:56)
--- NOTE | 2016-06-06 10:29 | PN ---
Psychiatric Progress Note Vital Signs: Vital Signs Period Temp Pulse Resp BP Sys/Blackwell Pulse Ox Last 24 Hr 97.9 F 69 18-18 134/92 Date of Session: 06/06/16 Chief Complaint:: discharge visit HPI: Patient is addressing alcohol dependence , opioid dependence on agonist therapy, comorbid Bipolar II disorder. ROS: hepatitis C,hypertension and bronchial asthma. Current Medications: Active Medications Generic Name Dose Route Start Last Admin Trade Name Freq PRN Reason Stop Dose Admin Acetaminophen 650 mg 05/09/16 16:34 Tylenol - PO Q4H PRN PAIN Al Hydroxide/Mg Hydroxide 30 ml 05/09/16 16:34 Mylanta Oral Suspension - PO Q6H PRN DYSPEPSIA Albuterol Sulfate 2 puff 05/09/16 16:38 Ventolin Hfa Inhaler - IH Q4H PRN ASTHMA Cyclobenzaprine HCl 10 mg 05/20/16 13:41 Flexeril - PO TID PRN MUSCLE SPASMS Diphenhydramine HCl 50 mg 05/09/16 16:34 05/19/16 21:45 Benadryl - PO 50 mg HSMR1 PRN Administration INSOMNIA Doxepin HCl 10 mg 05/20/16 22:00 06/05/16 21:45 Sinequan - PO 10 mg HS MARLEN Administration Escitalopram Oxalate 5 mg 05/21/16 10:00 06/06/16 09:54 Lexapro - PO 5 mg DAILY MARLEN Administration Eucalyptus/Menthol/Phenol/Sorbitol 1 each 05/09/16 16:34 Cepastat Lozenge - MM Q4H PRN SORE THROAT Guaifenesin 10 ml 05/09/16 16:34 Robitussin Dm - PO Q6H PRN COUGH Hydroxyzine Pamoate 50 mg 05/09/16 16:34 05/20/16 09:39 Vistaril - PO 50 mg Q4H PRN Administration AGITATION Ibuprofen 400 mg 05/09/16 16:34 05/20/16 14:08 Motrin - PO 400 mg Q6H PRN Administration SEVERE PAIN Loperamide HCl 4 mg 05/09/16 16:34 Imodium - PO Q6H PRN DIARRHEA Magnesium Citrate 300 ml 05/09/16 16:34 Citroma - PO Q48H PRN CONSTIPATION Magnesium Hydroxide 30 ml 05/09/16 16:34 Milk Of Magnesia - PO DAILY PRN CONSTIPATION Methadone HCl 30 mg 05/23/16 06:00 06/06/16 06:08 Dolophine - PO 30 mg DAILY@0600 MARLEN Administration Metoprolol Tartrate 25 mg 05/09/16 22:45 06/06/16 09:56 Lopressor - PO 25 mg DAILY MARLEN Administration Nicotine 21 mg 05/09/16 17:15 06/06/16 09:55 Nicoderm Patch - TD Not Given DAILY MARLEN Multivit/Folic Acid/Iron 1 tab 05/10/16 10:00 06/06/16 09:55 Vitamins (Sjr) - PO 1 tab DAILY MARLEN Administration Pseudoephedrine/Triprolidine 1 combo 05/09/16 16:34 Actifed - PO TID PRN NASAL CONGESTION Thiamine HCl 100 mg 05/09/16 22:00 06/05/16 21:45 Vitamin B1 - PO 100 mg HS MARLEN Administration Ziprasidone 40 mg 05/20/16 22:00 06/06/16 09:53 Geodon - PO 40 mg BID MARLEN Administration Current Side Effect: No Lab tests ordered: No Lab tests reviewed: Yes Provider note:: Patient has completed today his treatment and met his goals, will continue to address his issues at [facility] outpatient treatment program., patient gained insights into importance of changing attitude for the utulization of supports to prevent relapses. Encouraged patient to maintain abstinence. Medications well tolerated,scripts provided, patient is stable for discharge. Total face to face time:: 20 Mental Status Exam - Mental Status Exam Alert and Oriented to: Time, Place, Person Cognitive Function: Grossly Intact Patient Appearance: Well Groomed Mood: Hopeful Affect: Appropriate, Mood Congruent Patient Behavior: Appropriate, Cooperative Speech Pattern: Clear, Appropriate Voice Loudness: Normal Thought Process: Goal Oriented Thought Disorder: Not Present Hallucinations: Denies Suicidal Ideation: Denies Homicidal Ideation: Denies Insight/Judgement: Fair Sleep: Fair Appetite: Good Muscle strength/Tone: Normal Gait/Station: Normal Psychiatric Treatment Plan - Problem List (1) Alcohol dependence Current Visit: Yes (2) Opioid dependence on agonist therapy Current Visit: No (3) Asthma Current Visit: No Qualifiers: Asthma severity: moderate persistent Asthma complication type: with status asthmaticus Qualified Code(s): J45.42 - Moderate persistent asthma with status asthmaticus (4) Hepatitis C Current Visit: No Qualifiers: Viral hepatitis chronicity: chronic Hepatic coma status: without hepatic coma Qualified Code(s): B18.2 - Chronic viral hepatitis C Comment: schedule with primary care provider for treatment post detox discharge (5) Hypertension Current Visit: No Qualifiers: Hypertension type: essential hypertension Qualified Code(s): I10 - Essential (primary) hypertension Comment: clonidine (6) Bipolar II disorder Current Visit: Yes
== END 2016-06-06 13:20 | disposition home or self-care (01) | DRG 772 ==
LOC: YASAS 12:01 → Y5N 15:56
PROVIDERS: ADMIT Psychiatry & Neurology Psychiatry; ATTEND Psychiatry & Neurology Psychiatry
PROC: HZ42ZZZ Group Counseling for Substance Abuse Treatment, Cognitive-Behavioral (ICD-10-PCS; principal; 2016-06-06)
DX: F11.23 Opioid dependence with withdrawal (principal); F10.230 Alcohol dependence with withdrawal, uncomplicated; F31.81 Bipolar II disorder; J45.42 Moderate persistent asthma with status asthmaticus; I10 Essential (primary) hypertension; B18.2 Chronic viral hepatitis C
CPT/HCPCS: 36415; 80053; 81003; 85027; 86593; 90732; 93005; 93010; G0009